=== PATIENT | female | born 1945 | race Two or more races ===

== ENCOUNTER → 2018-09-14 | Outpatient (CLI) | payer OTHER ==
[~2018-09-14] MED LIST: ALBUAER3 IN; HYDR25TA4 PO; LATA0.0015 EACHEYE; LOSA-39 PO; OMEP20TA PO
[2018-09-14 09:34] LABS: Urine Blood Negative /uL (Negative); Urine Specific Gravity 1.008 (1.001-1.035)
[2018-09-14 09:38] LABS: Basophils # (auto) 0 uL; Basophils % (auto) 0.5 % (0.0-2.0); Eosinophils # (auto) 0.1 uL; Eosinophils % (auto) 1.2 % (0.0-7.0); Hematocrit 41.9 % (36.0-46.0); Hemoglobin 13.9 g/dL (12.2-16.2); Lymphocytes # (auto) 1.5 uL; Lymphocytes % (auto) 27.5 % (10.0-50.0); Mean Corpuscular Hemoglobin 29.5 pg (28.0-32.0); Mean Corpuscular Hgb Conc. 33.1 g/dL (32.0-36.0); Mean Corpuscular Volume 89.1 fL (80.0-100.0); Monocytes # (auto) 0.4 uL; Monocytes % (auto) 7.5 % (0.0-12.0); Neutrophils # (auto) 3.4 uL; Neutrophils % (auto) 63.3 % (37.0-80.0); Platelet Count (auto) 224 10^3/uL (140-450); Red Cell Distribution Width 14.2 % (11.8-14.3); White Blood Cell 5.4 10^3/uL (4.4-10.8)
[2018-09-14 09:50] LABS: INR < 0.93 (0.9-1.15); Partial Thromboplastin Time 27.5 sec (23.64-32.05)
[2018-09-14 10:10] LABS: Albumin 3.3 g/dL (3.4-5.0); Calcium 9.8 mg/dL (8.5-10.1); Potassium 4.2 mmol/L (3.5-5.1)
[2018-09-14 10:20] LABS: BUN/Creatinine Ratio 19.5; Bilirubin, Total 0.4 mg/dL (0.2-1.0); Total Protein 7.3 g/dL (6.4-8.2)
== END | disposition home or self-care (01) ==
LOC: LAB 09:05
PROVIDERS: ATTEND Internal Medicine
DX: E78.5 Hyperlipidemia, unspecified (principal)
CPT/HCPCS: 36415; 80053; 80061; 81003; 85025; 85610; 85730

== ENCOUNTER 2018-10-06 06:18 | Inpatient (IN) | payer OTHER ==
[2018-09-29 13:45] LABS: Basophils # (auto) 0 uL; Basophils % (auto) 0.4 % (0.0-2.0); Eosinophils # (auto) 0.1 uL; Eosinophils % (auto) 1.3 % (0.0-7.0); Hematocrit 41.1 % (36.0-46.0); Hemoglobin 13.8 g/dL (12.2-16.2); Lymphocytes # (auto) 1.8 uL; Lymphocytes % (auto) 30.7 % (10.0-50.0); Mean Corpuscular Hgb Conc. 33.6 g/dL (32.0-36.0); Mean Corpuscular Volume 89.2 fL (80.0-100.0); Monocytes # (auto) 0.5 uL; Monocytes % (auto) 8.6 % (0.0-12.0); Neutrophils # (auto) 3.4 uL; Nucleated Red Blood Cells % 0.1 %; Platelet Count (auto) 205 10^3/uL (140-450); Red Cell Distribution Width 13.7 % (11.8-14.3); Urine Blood Negative /uL (Negative); Urine Specific Gravity 1.007 (1.001-1.035); White Blood Cell 5.8 10^3/uL (4.4-10.8)
[2018-09-29 13:53] LABS: Albumin 3.1 g/dL (3.4-5.0); Calcium 9.2 mg/dL (8.5-10.1); Potassium 4.1 mmol/L (3.5-5.1)
[2018-09-29 13:56] LABS: BUN/Creatinine Ratio 16.5; Bilirubin, Total 0.3 mg/dL (0.2-1.0); Total Protein 7.4 g/dL (6.4-8.2)
[2018-09-29 14:18] LABS: INR < 0.93 (0.9-1.15); Partial Thromboplastin Time 26.8 sec (23.64-32.05)
[2018-10-06] VITALS (8 sets, daily range): BP systolic 95–131; BP diastolic 50–72
[~2018-10-06] VITALS: Ht 157.5 cm; Wt 97.8 kg
[~2018-10-06 06:18] MED LIST changes: +CLINDAMYCIN 600MG IV 50 ML IV ONE
[2018-10-06] MEDS ORDERED: TETRACAINE 1% INJ 2 ML VIAL IJ ONE (06:49)
[2018-10-06] MEDS ORDERED: MORPHINE SULF(PF) 0.5MG/ML 10ML VIAL ONE (06:59)
[2018-10-06] MEDS ORDERED: PROPOFOL 10 MG/ML 20 ML IV ONE ×2 (06:59→11:38)
[2018-10-06] MEDS ORDERED: MIDAZOLAM HCL 1MG/1ML-2 ML VIAL ONE (06:59)
[2018-10-06] MEDS ORDERED: fentaNYL CITRATE 100 MCG/2 ML VL ONE (06:59)
[2018-10-06] MEDS ORDERED: ONDANSETRON HCL 4 MG/2 ML VIAL ONE (06:59)
[2018-10-06] MEDS ORDERED: SODIUM CHLORIDE LOCK 10 ML ONE (06:59)
[2018-10-06] MEDS ORDERED: EPINEPHrine HCL 1 MG/1 ML AMP ONE (07:02)
[2018-10-06] MEDS ORDERED: CLINDAMYCIN 600MG IV 50 ML IV ONE (07:10)
[2018-10-06] MEDS ORDERED: diphenhdrAMINE HCL 50 MG/1 ML VL IV PRN (10:45)
[2018-10-06] MEDS ORDERED: METOCLOPRAMIDE HCL 5MG/ml INJ 2ml VIAL IV PRN (10:45)
[2018-10-06] MEDS ORDERED: KETOROLAC TROMETH 30 MG/ML 1ML VIAL IV ONE (10:45)
[2018-10-06] MEDS ORDERED: HYDROmorphone HCL 2 MG/ML VL IV PRN (10:45)
[2018-10-06] MEDS ORDERED: fentaNYL CITRATE 100 MCG/2 ML VL IV PRN (10:45)
[2018-10-06] MEDS ORDERED: NALOXONE HCL 0.4 MG/ML VIAL IV PRN (10:45)
[2018-10-06] MEDS ORDERED: LACTATED RINGER'S 1,000 ML IV SCH (12:31)
[2018-10-06] MEDS ORDERED: ENOXAPARIN SOD 40 MG/0.4 ML SYRINGE SC ONE (12:45)
[2018-10-06] MEDS ORDERED: ONDANSETRON HCL 4 MG/2 ML VIAL IV PRN (12:45)
[2018-10-06] MEDS ORDERED: TEMAZEPAM 15 MG CAP PO PRN (12:45)
[2018-10-06] MEDS ORDERED: ACETAMINOPHEN 325 MG TAB PO PRN (12:45)
--- NOTE | 2018-10-06 13:19 | NUR ---
assessment Per consult D/C planning: JENNIFER, 3 in 1. Patient is still in surgery. Will assess if patient is assigned to a room by 1630. Addendum: 10/06/18 at 1321 by Kathleen Parham Amended: Links added.
--- NOTE | 2018-10-06 14:30 | NUR ---
PATIENT ARRIVED ON UNIT PATIENT IS A&OX4 WITH C/O PAIN TO RIGHT KNEE. R KNEE PRESENTS WITH SOME DRAINAGE PRESENT MARKED AREA AND WILL CONTINUE TO MONITOR. BED IS IN LOW POSITION, BED RAILS UP X2, CALL LIGHT WITHIN REACH. PATIENT EDUCATED SLOT MACHINE DEPARTMENT FLOORPERSON LIGHT USE PRN AND ON POC.
--- NOTE | 2018-10-06 14:50 | NUR ---
RECD ORDER FOR CONTINUOUS PULSE OX. PT CONNECTED TO CONTINUOUS PULSE OX AT BEDSIDE. PT ON 2LNC, SO2 95%, HR 88, RR 18. PT AWAKE, AND ALERT IN NO DISTRESS.
[2018-10-06] MEDS: HYDROmorphone HCL 2 MG/ML VL IV PRN (15:30)
[2018-10-06] MEDS: SODIUM CHLOR 0.9% PF (SALINE LOCK) 10ML VIAL/SYR IV SCH ×2 (17:00→22:05)
[2018-10-06] MEDS: CLINDAMYCIN 600MG IV 50 ML IV SCH ×2 (17:00→22:05)
--- NOTE | 2018-10-06 17:30 | NUR ---
R KNEE ASSESSMENT R KNEE DRESSING PRESENTS SATURATED WITH BRIGHT RED BLOOD AND BED PADS BELOW DRESSING. DR SOHA DAILEY
--- NOTE | 2018-10-06 17:45 | NUR ---
CHARGE NOTIFIED OF BLEEDING AND THAT DR HOYOS DID NOT RETURN THE CALL. PER FUNDRAISING ASSISTANT REINFORCE DRESSING AND HE WILL MAKE CONTACTS WELL
[2018-10-06] MEDS: HYDROcodone-ACET 10/325MG TAB PO PRN ×2 (18:02→22:33)
--- NOTE | 2018-10-06 18:19 | NUR ---
SPOKE WITH MD DR HOYOS RETURNED PAGE
--- NOTE | 2018-10-06 18:30 | NUR ---
DR HOYOS AT BEDSIDE REDRESSING SURGICAL SITE
--- NOTE | 2018-10-06 18:50 | NUR ---
POX CHECK. 2L 99% HR 70 RR 18.
--- NOTE | 2018-10-06 18:57 | NUR ---
WOUND CARE PER DR HOYOS IF PT INCISION BLEEDS MORE DO NOT REINFORCE BUT CHANGE THE ENTIRE DRESSING
[2018-10-06] MEDS: DOCUSATE SOD 100 MG CAP PO SCH (22:04)
[2018-10-07] VITALS (9 sets, daily range): BP systolic 110–147; BP diastolic 62–82
[2018-10-07] MEDS: HYDROmorphone HCL 2 MG/ML VL IV PRN ×2 (01:23→13:40)
[2018-10-07] MEDS: CLINDAMYCIN 600MG IV 50 ML IV SCH ×2 (05:22→14:00)
[2018-10-07] MEDS: SODIUM CHLOR 0.9% PF (SALINE LOCK) 10ML VIAL/SYR IV SCH ×3 (05:23→21:51)
[2018-10-07] MEDS: HYDROcodone-ACET 10/325MG TAB PO PRN ×3 (05:35→22:04)
--- NOTE | 2018-10-07 06:54 | NUR ---
Respiratory note: PT ASSESSED FOR CONT POX. PT NOTED TO BE ON RA SPO2 ALARM GOING OFF DUE TO SPO2 84% PT SLEPT. PT AWOKEN AND SPO2 NOTED TO INCREASE TO 91% ON RA PT PLACED ON 2L N/C SPO2 IMPROVED TO 96%. PT EDUCATED FOR NEED OF OXYGEN PLACEMENT AND UNDERSTANDS. HR 98% RR 18. PT AWARE TO HAVE RT PAGED IF NEEDED.
[2018-10-07 07:28] LABS: Hematocrit 33.4 % (36.0-46.0); Hemoglobin 11.1 g/dL (12.2-16.2)
--- NOTE | 2018-10-07 07:30 | NUR ---
Opening Shift Note Assumed care of patient, awake and alert. No S/S of distress/SOB on 2 LPM via nasal cannula, complains of pain, will medicate as ordered. Instructed on POC and to call for assist PRN, will continue to monitor for changes Q1hr and PRN. Bed in low and locked position, rails up x2, no-slip socks on.
[2018-10-07] MEDS: DOCUSATE SOD 100 MG CAP PO SCH ×2 (10:02→21:51)
[2018-10-07] MEDS: ENOXAPARIN SOD 40 MG/0.4 ML SYRINGE SC SCH (10:03)
--- NOTE | 2018-10-07 10:40 | NUR ---
DR HOYOS AT BEDSIDE NO NEW ORDERS
--- NOTE | 2018-10-07 11:18 | NUR ---
DR GALVAN AT BEDSIDE NEW ORDERS ADDED
--- NOTE | 2018-10-07 11:30 | NUR ---
CALL TO ORTHO DEPARTMENT LEFT MESSAGE FOR [facility] REGARDING CPM SET UP, PATIENT HAS NOT BEEN ON IT ORDERED. AWAITING CALL BACK. NOTIFIED CHARGE NURSE.
--- NOTE | 2018-10-07 11:50 | NUR ---
NOTIFIED HEAD HOLDER OF INABILITY TO OBTAIN A CPM AT THIS TIME, MADE AWARE AND WILL ATTEMPT TO CONTACT ORTHO.
[2018-10-07] MEDS: FAMOTIDINE 20 MG TAB PO SCH ×2 (12:13→21:51)
--- NOTE | 2018-10-07 13:12 | NUR ---
o/c note: ss order for cpm machine. Instructed PALOMO Dinh to fax to [facility] [phone], face sheet, order and cover sheet.
--- NOTE | 2018-10-07 13:36 | NUR ---
0/c note DME auth for CPM machine is [id number] RN to find out if pt has fww and 3:1 chair. If not auth for fww and 3:1 i [id number]. RN to fax to fax [phone] # [phone]
--- NOTE | 2018-10-07 13:40 | NUR ---
PHYSICAL THERAPY AT BEDSIDE CPM MACHINE PLACED, PATIENT ONLY ABLE TO TOLERATE 25 DEGREES AT THIS TIME, PER PT, ALLOW MACHINE TO RUN AND INCREASE DEGREES UP TO 30 IN 30 MINUTES
--- NOTE | 2018-10-07 13:47 | NUR ---
o/c note Spoke to primary RN Elba. Instructed her to fax dme order to [facility]. Elba stated pt already has 3 1 chair
--- NOTE | 2018-10-07 13:54 | NUR ---
o/c note: Zheng from [employer] asking for the following paperwork to be faxed to [employer]. H&p , opertative report, auth #, face sheet,and a prescription for cpm machine. will call primary RN to fax this request
--- NOTE | 2018-10-07 14:20 | NUR ---
CPM UP TO 30 DEGREES PATIENT ABLE TO TOLERATE
--- NOTE | 2018-10-07 14:34 | NUR ---
o/c note Elba curtis RN stated she will try to get Prescription from today, if not today , then she is on tomorrow and will get it then. [facility] notified
--- NOTE | 2018-10-07 15:00 | NUR ---
GUN WELDER INFORMATION FAXED FAXED AUTH NUMBER, ORDER AND FACE SHEET TO [facility] FOR FWW
--- NOTE | 2018-10-07 16:00 | NUR ---
LOW GRADE FEVER 99.4, COOLING MEASURES INITIATED, ICE PACKS APPLIED AND ROOM COOLED.
--- NOTE | 2018-10-07 16:30 | NUR ---
DRESSING CHANGED PATIENT REQUESTING TO COME OFF THE CPM MACHINE, DRESSING TO RIGHT LEG WITH MODERATE SANGUINEOUS DRAINAGE. WOUND WELL APPROXIMATED AND LORRI INTACT. DRESSING APPLIED WITH 4X4 GAUZE AND TAPE, PATIENT TOLERATED IT WELL.
--- NOTE | 2018-10-07 17:30 | NUR ---
Corrales catheter dc'd Order to discontinue corrales catheter. Corrales dc'd with clean technique following deflation of balloon. Patient tolerated well with no complaints of pain. Continue care.
--- NOTE | 2018-10-07 20:00 | NUR ---
Opening Shift Note Assumed care of patient, awake and alert. No S/S of distress/SOB or pain. Instructed on POC and to call for assist PRN, will continue to monitor for changes Q1hr and PRN.Dressing on the right knee dry and intact.
[2018-10-07] MEDS: LATANOPROST 0.005 % OPTH(EYE) SOL 2.5ML EACHEYE SCH (21:51)
[2018-10-08 05:20] VITALS: BP 155/69
[2018-10-08] MEDS: SODIUM CHLOR 0.9% PF (SALINE LOCK) 10ML VIAL/SYR IV SCH ×3 (06:06→23:40)
[2018-10-08 06:31] LABS: Basophils # (auto) 0 uL; Basophils % (auto) 0.2 % (0.0-2.0); Eosinophils # (auto) 0 uL; Eosinophils % (auto) 0.2 % (0.0-7.0); Hematocrit 31.2 % (36.0-46.0); Hemoglobin 10.5 g/dL (12.2-16.2); Lymphocytes # (auto) 1.6 uL; Lymphocytes % (auto) 14.7 % (10.0-50.0); Mean Corpuscular Hgb Conc. 33.8 g/dL (32.0-36.0); Mean Corpuscular Volume 88.8 fL (80.0-100.0); Monocytes # (auto) 0.8 uL; Neutrophils # (auto) 8.1 uL; Neutrophils % (auto) 76.9 % (37.0-80.0); Nucleated Red Blood Cells % 0.1 %; Platelet Count (auto) 169 10^3/uL (140-450); Red Blood Cells 3.51 10^6/uL (4.0-5.20); Red Cell Distribution Width 13.3 % (11.8-14.3); White Blood Cell 10.6 10^3/uL (4.4-10.8)
[2018-10-08 06:57] LABS: Calcium 8.7 mg/dL (8.5-10.1); Potassium 3.9 mmol/L (3.5-5.1)
[2018-10-08 06:58] LABS: BUN/Creatinine Ratio 16.7
--- NOTE | 2018-10-08 07:01 | NUR ---
Report given to Ishmael Arreola, patient is resting no distress.
--- NOTE | 2018-10-08 07:30 | NUR ---
Opening Shift Note Assumed care of patient, awake and alert. No S/S of distress/SOB or pain on 2 LPM via nasal cannula. Instructed on POC and to call for assist PRN, will continue to monitor for changes Q1hr and PRN. Bed in low and locked position, rails up x2, no-slip socks on.
[2018-10-08 09:11] VITALS: BP 159/72
[2018-10-08] MEDS: DOCUSATE SOD 100 MG CAP PO SCH ×2 (10:22→23:40)
[2018-10-08] MEDS: ENOXAPARIN SOD 40 MG/0.4 ML SYRINGE SC SCH (10:22)
[2018-10-08] MEDS: FAMOTIDINE 20 MG TAB PO SCH ×2 (10:22→23:40)
[2018-10-08] MEDS: HYDROcodone-ACET 10/325MG TAB PO PRN ×2 (10:22→23:57)
--- NOTE | 2018-10-08 10:22 | NUR ---
o/c note Virgilio Conway called and asked for update for CPM machine. Informed them we are waiting for prescription from MD and as soon as we get prescription, we will fax it to them. I also gave them ph # to hospital and to speak to primary RN so Virgilio Conway can speak with pt to see if pt wants cpm machine delivered to pts home
[2018-10-08] MEDS ORDERED: LOSARTAN POTASSIUM 50 MG TAB PO ONE (11:30)
--- NOTE | 2018-10-08 12:37 | NUR ---
called [facility] to inquire about fww, had to leave message and await call back
[2018-10-08 13:00] VITALS: BP 158/70
--- NOTE | 2018-10-08 13:12 | NUR ---
o/c note I called GABRIELLA staley [phone] and had to leave message to call me back
[2018-10-08] MEDS: HYDROmorphone HCL 2 MG/ML VL IV PRN (13:30)
--- NOTE | 2018-10-08 13:52 | NUR ---
o/c note spoke to Gely at she will work on order and have fww delivered tomorrow at bedside
--- NOTE | 2018-10-08 15:00 | NUR ---
DR ANGEL AT BEDSIDE NEW BP MEDICATION ADDED, NO OTHER ORDERS ADDED
[2018-10-08 16:47] VITALS: BP 132/95
[2018-10-08 17:15] VITALS: BP 126/102
--- NOTE | 2018-10-08 19:20 | NUR ---
Opening Shift Note Assumed care of patient, eyes close, respirations even and unlabored, appears asleep. Patient awakens to name and touch. No S/S of distress/SOB or pain on 2 liters via nasal cannula. Bed in lowest locked position, side rails up x2, call light within reach. Dressing to right knee clean, dry, and intact. Instructed on POC and to call for assist PRN, will continue to monitor for changes Q1hr and PRN.
[2018-10-08 21:52] VITALS: BP 155/69
--- NOTE | 2018-10-08 22:00 | NUR ---
Low grade temperature Patient's temperature 99.1. Patient denies chills and no s/s of distress at this time. Cooling measures provided. Will continue to monitor.
[2018-10-08] MEDS: LATANOPROST 0.005 % OPTH(EYE) SOL 2.5ML EACHEYE SCH (23:40)
[2018-10-09 05:45] VITALS: BP 147/60
[2018-10-09] MEDS: SODIUM CHLOR 0.9% PF (SALINE LOCK) 10ML VIAL/SYR IV SCH ×2 (06:00→13:54)
[2018-10-09 06:49] LABS: Hematocrit 32.2 % (36.0-46.0); Hemoglobin 10.8 g/dL (12.2-16.2)
--- NOTE | 2018-10-09 07:09 | NUR ---
Closing Note Patient lying in bed, eyes closed, respirations even and unlabored, appears asleep. Patient awakens to name and touch. No s/s of distress. Will endorse care to dayshift RN.
--- NOTE | 2018-10-09 08:00 | NUR ---
Opening Shift Note Assumed care of patient, awake and alert. No S/S of distress/SOB. Some pain reported to right knee. Instructed on POC and to call for assist PRN, will continue to monitor for changes Q1hr and PRN.
[2018-10-09 08:30] VITALS: BP 139/71
[2018-10-09] MEDS: LOSARTAN POTASSIUM 50 MG TAB PO SCH (09:43)
[2018-10-09] MEDS: DOCUSATE SOD 100 MG CAP PO SCH ×2 (09:43→21:56)
[2018-10-09] MEDS: ENOXAPARIN SOD 40 MG/0.4 ML SYRINGE SC SCH (09:43)
[2018-10-09] MEDS: FAMOTIDINE 20 MG TAB PO SCH ×2 (09:43→21:56)
[2018-10-09] MEDS: HYDROmorphone HCL 2 MG/ML VL IV PRN (11:06)
[2018-10-09 12:33] VITALS: BP 132/69
[2018-10-09] MEDS: HYDROcodone-ACET 10/325MG TAB PO PRN ×2 (15:15→21:56)
[2018-10-09 17:18] VITALS: BP 120/76
--- NOTE | 2018-10-09 19:35 | NUR ---
Opening Shift Note Report received from day shift RN. Assumed care of patient. Patient awake and alert x4. No S/S of distress/SOB noted and patient states having right knee pain. Dressing to right knee clean, dry, and intact. Instructed on POC and to call for assist PRN, will continue to monitor for changes Q1hr and PRN.
[2018-10-09] MEDS: LATANOPROST 0.005 % OPTH(EYE) SOL 2.5ML EACHEYE SCH (21:57)
[2018-10-09 22:00] VITALS: BP 124/65
[2018-10-10] MEDS: SODIUM CHLOR 0.9% PF (SALINE LOCK) 10ML VIAL/SYR IV SCH ×4 (00:15→23:28)
[2018-10-10 05:00] VITALS: BP 130/61
[2018-10-10 06:59] LABS: Hematocrit 29.2 % (36.0-46.0); Hemoglobin 9.7 g/dL (12.2-16.2)
[2018-10-10 07:13] LABS: Calcium 8.6 mg/dL (8.5-10.1); Potassium 3.9 mmol/L (3.5-5.1)
[2018-10-10 07:15] LABS: BUN/Creatinine Ratio 22.9
--- NOTE | 2018-10-10 08:00 | NUR ---
Opening Shift Note Assumed care of patient, resting with eyes closed. Wakes to sound and touch. No S/S of distress/SOB. Some pain to right knee. Instructed on POC and to call for assist PRN, will continue to monitor for changes Q1hr and PRN.
[2018-10-10 09:00] VITALS: BP 130/61
--- NOTE | 2018-10-10 09:20 | NUR ---
Managed Care I faxed paper work along with [employer] and order to managed care at this time
[2018-10-10] MEDS: LOSARTAN POTASSIUM 50 MG TAB PO SCH (09:46)
[2018-10-10] MEDS: DOCUSATE SOD 100 MG CAP PO SCH ×2 (09:46→21:42)
[2018-10-10] MEDS: ENOXAPARIN SOD 40 MG/0.4 ML SYRINGE SC SCH (09:46)
[2018-10-10] MEDS: FAMOTIDINE 20 MG TAB PO SCH ×2 (09:46→21:42)
[2018-10-10] MEDS: HYDROcodone-ACET 10/325MG TAB PO PRN ×2 (09:51→21:42)
--- NOTE | 2018-10-10 10:00 | NUR ---
CPM machine [facility] from Ortho stated that the patient is to take the CPM machine home from her room if she is discharged today.
--- NOTE | 2018-10-10 10:01 | NUR ---
Discharge planning per consult received, patient has orders for a CPM machine. Referral was sent to [email or web address] on 10.08.18, placed a follow up call, spoke with Stella, and was advised they have received the order and [facility] will deliver the machine this evening between 5-8pm. Addendum: 10/10/18 at 1004 by WING HUNTLEY SS Amended: Links added. Addendum: 10/10/18 at 1150 by WING HUNTLEY SS Placed a follow up call to Stella at [email or web address] and advised her that the CPM machine needed to be delivered at bedside. She advised that she would let [facility] know to deliver the CPM here to the bedside between 5-8pm today 10.10.18.
--- NOTE | 2018-10-10 10:58 | NUR ---
Nutrition Assessment Notes please see attached link for complete assessment Est. Needs ABW (73 kg): [id number] kcal (20-23 kcal/kgBW), 73-80 gms pro (1.0-1.1 gms/kgBW). Will continue to monitor pertinent labs and reassess nutrient need prn Addendum: 10/10/18 at [address] Amended: Links added.
[2018-10-10] MEDS: HYDROmorphone HCL 2 MG/ML VL IV PRN (12:53)
[2018-10-10 13:00] VITALS: BP 123/58
[2018-10-10 17:00] VITALS: BP 110/52
--- NOTE | 2018-10-10 17:19 | NUR ---
assessment Patient is a 73 year old female who is alert and oriented. Patients cognitive abilities are intact. Prior to admission patient lived home with family and functioned independently. Patient informed me she is able to care for her own ADLs. Per patient she will return home to her prior living arrangements post discharge and her son will transport her home. Patient has been admitted for right knee replacement. Patient has no DME at home. Patient will need home health for PT, fww, and CPM machine on discharge. Selina SHARP CM will be satisfying MD orders for Fww and home health. Patient informed me her cousin Caity will help her on discharge with bathing and cooking. Patient informed me she has good family support. I informed patient she has a right to speak to a foster care social worker regarding all care. Patient does not have a POA and advanced directive. I have offered patient information on POA and advanced directives. I informed the patient the advantages and benefits of having an Advanced Directive. Patient does not want advanced directive at this time. Patient verbalized understanding and agreed to discharge plan home. Addendum: 10/10/18 at 1722 by Kathleen IQBAL Amended: Links added.
--- NOTE | 2018-10-10 19:23 | NUR ---
Opening Shift Note Report received from day shift RN. Assumed care of patient. Patient awake laying in bed and alert x4. No S/S of distress/SOB noted and patient states having right knee pain. Will medicate patient as ordered. Dressing to right knee clean, dry, and intact. Instructed on POC and to call for assist PRN, will continue to monitor for changes Q1hr and PRN.
[2018-10-10] MEDS: LATANOPROST 0.005 % OPTH(EYE) SOL 2.5ML EACHEYE SCH (21:44)
[2018-10-10 22:00] VITALS: BP 130/66
--- NOTE | 2018-10-10 22:15 | NUR ---
Low grade temperature Patient's temperature 99.5. Patient denies chills and no s/s of distress at this time. Cooling measures initiated, ice packs given. Will continue to monitor.
--- NOTE | 2018-10-10 23:15 | NUR ---
Temperature reassessed After cooling measures initiated, patient's temp 99.0, will continue to monitor.
[2018-10-11 06:01] VITALS: BP 146/79
[2018-10-11] MEDS: SODIUM CHLOR 0.9% PF (SALINE LOCK) 10ML VIAL/SYR IV SCH ×2 (06:24→14:00)
--- NOTE | 2018-10-11 08:00 | NUR ---
Opening Shift Note Assumed care of patient, awake and alert. No S/S of distress/SOB, 5/10 right knee pain. Right knee dressing dry and intact with CPM. Instructed on POC and to call for assist PRN, will continue to monitor for changes Q1hr and PRN.
[2018-10-11 09:00] VITALS: BP 153/73
[2018-10-11] MEDS: LOSARTAN POTASSIUM 50 MG TAB PO SCH (09:22)
[2018-10-11] MEDS: HYDROmorphone HCL 2 MG/ML VL IV PRN ×2 (09:22→16:23)
[2018-10-11] MEDS: FAMOTIDINE 20 MG TAB PO SCH (09:23)
[2018-10-11] MEDS: ENOXAPARIN SOD 40 MG/0.4 ML SYRINGE SC SCH (09:23)
[2018-10-11] MEDS: DOCUSATE SOD 100 MG CAP PO SCH (09:23)
--- NOTE | 2018-10-11 09:55 | NUR ---
Walk with PT today. Addendum: 10/11/18 at 1140 by Misty Vicente RN Walked with PT today. Tolerated well.
--- NOTE | 2018-10-11 12:56 | NUR ---
re-assessment Per Selina case resource manager consult Home Pt faxed to [facility] ph:[phone] fx: [phone] per Martine pt has been accepted and service to start 24-48 hours post discharge. Pt agrees to discharge plan home. Addendum: 10/11/18 at 1524 by Kathleen IQBAL Amended: Links added.
[2018-10-11 13:00] VITALS: BP 148/63
[2018-10-11] MEDS ORDERED: LOSARTAN POTASSIUM 50 MG TAB PO ONE (13:00)
[2018-10-11] MEDS: HYDROcodone-ACET 10/325MG TAB PO PRN (13:10)
[2018-10-11 16:35] VITALS: BP 148/63
[2018-10-11 17:00] VITALS: BP 110/40
--- NOTE | 2018-10-11 17:00 | NUR ---
Right knee dressing changed.
--- NOTE | 2018-10-11 18:35 | NUR ---
Discharge instructions given as ordered. Encourage to follow up with PMD Dr. Flo Om on 10/18/18 at 1:00pm and follow up with ortho Dr. Thompson on 10/20/18 at 2:30pm as instructed. Details of the follow up appointments given to the patient. All questions and concerns addressed. Patient verbalized understanding. Medication reconciliation form completed and copy given to patient. IV removed with catheter intact, pressure dressing applied. Patient taken to vehicle via wheelchair with all personal belongings, accompanied by staff and family member. CPM machine and FWW were also taken for home use. No distress noted at time of departure.
== END 2018-10-11 18:35 | disposition home health service (06) | DRG 470 ==
LOC: SUR 06:18 → EAST 13:34
PROVIDERS: ADMIT Orthopaedic Surgery; ATTEND Internal Medicine
PROC: 0MBN0ZZ Excision of Right Knee Bursa and Ligament, Open Approach (ICD-10-PCS; principal; 2018-10-07)
PROC: 0SRC0J9 Replacement of Right Knee Joint with Synthetic Substitute, Cemented, Open Approach (ICD-10-PCS; 2018-10-07)
PROC: 0QSG0ZZ Reposition Right Tibia, Open Approach (ICD-10-PCS; 2018-10-07)
PROC: 0QSD0ZZ Reposition Right Patella, Open Approach (ICD-10-PCS; 2018-10-07)
DX: M17.11 Unilateral primary osteoarthritis, right knee (principal); E87.1 Hypo-osmolality and hyponatremia; E66.01 Morbid (severe) obesity due to excess calories; J44.9 Chronic obstructive pulmonary disease, unspecified; K21.9 Gastro-esophageal reflux disease without esophagitis; I10 Essential (primary) hypertension; H40.9 Unspecified glaucoma; Z79.01 Long term (current) use of anticoagulants; Z79.899 Other long term (current) drug therapy; Z88.0 Allergy status to penicillin; Z68.39 Body mass index [BMI] 39.0-39.9, adult
CPT/HCPCS: 36415; 73562; 80048; 80053; 81003; 85014; 85018; 85025; 85610; 85730; 86850; 86900; 86901; 94762; 97110; 97116; 97163; 97530; G0378; J0171; J2250; J2405; J2704; J3490

== ENCOUNTER → 2018-10-27 | Outpatient (CLI) | payer OTHER ==
[~2018-10-27] MED LIST changes: -CLINDAMYCIN 600MG IV 50 ML IV ONE
== END | disposition home or self-care (01) ==
LOC: XYW 14:05
PROVIDERS: ATTEND Orthopaedic Surgery
DX: M79.89 Other specified soft tissue disorders (principal); Z96.659 Presence of unspecified artificial knee joint
CPT/HCPCS: 93971

== ENCOUNTER → 2019-04-03 | Day surgery (SDC) | payer OTHER ==
[2019-03-29 09:50] LABS: Basophils # (auto) 0 uL; Basophils % (auto) 0.6 % (0.0-2.0); Eosinophils # (auto) 0.1 uL; Eosinophils % (auto) 1.2 % (0.0-7.0); Hematocrit 42.4 % (36.0-46.0); Hemoglobin 13.8 g/dL (12.2-16.2); Lymphocytes # (auto) 1.1 uL; Lymphocytes % (auto) 23.8 % (10.0-50.0); Mean Corpuscular Hemoglobin 27.8 pg (28.0-32.0); Mean Corpuscular Hgb Conc. 32.6 g/dL (32.0-36.0); Mean Corpuscular Volume 85.2 fL (80.0-100.0); Monocytes # (auto) 0.4 uL; Monocytes % (auto) 8.2 % (0.0-12.0); Neutrophils # (auto) 3.2 uL; Neutrophils % (auto) 66.2 % (37.0-80.0); Nucleated Red Blood Cells % 0.1 %; Platelet Count (auto) 226 10^3/uL (140-450); Red Blood Cells 4.97 10^6/uL (4.0-5.20); Red Cell Distribution Width 15.5 % (11.8-14.3); White Blood Cell 4.8 10^3/uL (4.4-10.8)
[2019-03-29 10:07] LABS: Partial Thromboplastin Time 27.8 sec (23.64-32.05)
[~2019-04-03] VITALS: Ht 157.5 cm; Wt 84.8 kg
[~2019-04-03] MED LIST changes: -ALBUAER3 IN; +LIDOCAINE VISCOUS 2% 15ML UD ONE; -LOSA-39 PO; +LOSA-69 PO; -OMEP20TA PO; +PRE5T PO; +SODIUM CHLORIDE LOCK 10 ML ONE; +diphenhdrAMINE HCL 50 MG/1 ML VL ONE
[2019-04-03] MEDS: MIDAZOLAM HCL 5 MG/ML-1ML VIAL ONE ×3 (12:04→12:18)
[2019-04-03] MEDS: fentaNYL CITRATE 100 MCG/2 ML VL ONE ×3 (12:04→12:18)
[2019-04-03 13:21] VITALS: BP 137/70
== END | disposition home or self-care (01) ==
LOC: GI 11:17
PROVIDERS: ATTEND Internal Medicine Gastroenterology
DX: K92.1 Melena (principal); K44.9 Diaphragmatic hernia without obstruction or gangrene; K57.30 Diverticulosis of large intestine without perforation or abscess without bleeding; K64.8 Other hemorrhoids; E66.9 Obesity, unspecified; Z88.0 Allergy status to penicillin; Z90.49 Acquired absence of other specified parts of digestive tract; Z79.899 Other long term (current) drug therapy; Z68.34 Body mass index [BMI] 34.0-34.9, adult; Z96.651 Presence of right artificial knee joint
CPT/HCPCS: 36415; 43235; 45378; 85025; 85610; 85730; J1200; J2250; J3010; 99152; 99153

== ENCOUNTER 2019-06-07 12:37 | Inpatient (IN) | payer OTHER ==
[~2019-06-07] VITALS: Ht 157.5 cm; Wt 87.8 kg
[~2019-06-07 12:37] MED LIST changes: -LATA0.0015 EACHEYE; +LATA0.0019 EACHEYE; -LIDOCAINE VISCOUS 2% 15ML UD ONE; -SODIUM CHLORIDE LOCK 10 ML ONE; -diphenhdrAMINE HCL 50 MG/1 ML VL ONE
[2019-06-07] MEDS ORDERED: NITROGLYCERIN 0.4 MG SL TAB SL ONE (13:00)
[2019-06-07] MEDS ORDERED: cloNIDine HCL 0.1 MG TAB PO ONE (13:00)
[2019-06-07] MEDS ORDERED: ASPirin 81 mg TAB PO ONE (13:00)
[2019-06-07 13:27] LABS: Basophils # (auto) 0 10 ^3/uL (0-0.2); Basophils % (auto) 0.6 % (0.0-2.0); Eosinophils # (auto) 0 10 ^3/uL (0-0.8); Eosinophils % (auto) 0.9 % (0.0-7.0); Hematocrit 44.2 % (36.0-46.0); Hemoglobin 14.5 g/dL (12.2-16.2); Lymphocytes # (auto) 1.2 10 ^3/uL (0.4-5.4); Lymphocytes % (auto) 25.4 % (10.0-50.0); Mean Corpuscular Hemoglobin 27.9 pg (28.0-32.0); Mean Corpuscular Hgb Conc. 32.7 g/dL (32.0-36.0); Mean Corpuscular Volume 85.4 fL (80.0-100.0); Monocytes # (auto) 0.3 10 ^3/uL (0-1.3); Monocytes % (auto) 6.9 % (0.0-12.0); Neutrophils # (auto) 3.2 10 ^3/uL (1.6-8.6); Neutrophils % (auto) 66.2 % (37.0-80.0); Nucleated Red Blood Cells % 0.1 %; Platelet Count (auto) 239 10^3/uL (140-450); Red Blood Cells 5.17 10^6/uL (4.0-5.20); Red Cell Distribution Width 14.5 % (11.8-14.3); White Blood Cell 4.9 10^3/uL (4.4-10.8)
[2019-06-07 13:32] LABS: INR 0.98 (0.9-1.15); Partial Thromboplastin Time 27.3 sec (23.64-32.05)
[2019-06-07 13:41] LABS: Albumin 3.2 g/dL (3.4-5.0); Anion Gap 7 (5-15); BUN/Creatinine Ratio 10.8; Blood Urea Nitrogen 10 mg/dL (7-18); Calcium 8.9 mg/dL (8.5-10.1); Carbon Dioxide 28 mmol/L (21-32); Chloride 103 mmol/L (98-107); GFR African American 76 mL/min; GFR Non-African American 62 mL/min; Glucose 146 mg/dL (74-106); Potassium 3.6 mmol/L (3.5-5.1); Sodium 138 mmol/L (136-145)
[2019-06-07 13:46] LABS: Alanine Aminotransferase 27 U/L (13-56); Alkaline Phosphatase 67 U/L (45-117); Aspartate Aminotransferase 20 U/L (15-37); Bilirubin, Total 0.5 mg/dL (0.2-1.0); Total Protein 7.7 g/dL (6.4-8.2)
[2019-06-07] MEDS ORDERED: MORPHINE SULF INJ 2 MG/ML SYRINGE 1ML IV PRN (14:45)
[2019-06-07] MEDS ORDERED: NITROGLYCERIN 0.4 MG SL TAB SL PRN (14:45)
[2019-06-07] MEDS ORDERED: ACETAMINOPHEN 500 MG TAB PO PRN (15:30)
[2019-06-07] MEDS ORDERED: PROMETHAZINE HCL 25 MG/ML 1ML IV PRN (15:30)
[2019-06-07] MEDS ORDERED: TEMAZEPAM 15 MG CAP PO PRN (15:30)
[2019-06-07] MEDS ORDERED: DEXTROSE (50%) 50ML SYRG IV PRN (15:30)
[2019-06-07] MEDS: traMADol HCL 50 MG TAB PO PRN ×2 (16:05→21:58)
[2019-06-07] MEDS: SODIUM CHLORIDE 0.9% 1,000 ML IV SCH (16:05)
[2019-06-07 16:34] LABS: Urine WBC None Seen /hpf (0 - 5)
[2019-06-07 16:45] LABS: Urine Bacteria NONE SEEN /hpf (None Seen); Urine Blood Negative /uL (Negative); Urine Specific Gravity 1.007 (1.001-1.035)
[2019-06-07 16:52] LABS: CRP High Sensitivity 0.74 mg/dL (< 0.3)
[2019-06-07] MEDS: ACCU-CHEK COMFORT CURVE STRIP VI SCH ×2 (17:00→21:35)
[2019-06-07 17:45] VITALS: BP 138/72
[2019-06-07] MEDS ORDERED: FUROSEMIDE 20 MG/2 ML VIAL IV ONE (17:45)
[2019-06-07 18:02] VITALS: BP 138/72
[2019-06-07 18:12] LABS: Magnesium 2.1 mg/dL (1.6-2.6)
[2019-06-07] MEDS ORDERED: METO25TA93 PO (18:21)
--- NOTE | 2019-06-07 21:35 | NUR ---
ACCU CHECK DONE 11O
[2019-06-07] MEDS: METOPROLOL TARTRATE 25 MG TAB PO SCH (21:58)
[2019-06-07] MEDS: ATORVASTATIN 20 MG TAB PO SCH (21:58)
[2019-06-07 22:00] VITALS: BP 146/77
[2019-06-07] MEDS ORDERED: METOPROLOL TARTRATE 25 MG TAB PO SCH (22:00)
[2019-06-08 05:00] VITALS: BP 133/66
[2019-06-08] MEDS: SODIUM CHLORIDE 0.9% 1,000 ML IV SCH (05:31)
[2019-06-08] MEDS: ACCU-CHEK COMFORT CURVE STRIP VI SCH (05:42)
--- NOTE | 2019-06-08 05:42 | NUR ---
ACCU CHECK DONE 93
[2019-06-08 06:39] LABS: Cholesterol 125 mg/dL (< 200); HDL Cholesterol 52 mg/dL (40-59); LDL Cholesterol 60 mg/dL (< 100); Triglycerides 82 mg/dL (< 150)
--- NOTE | 2019-06-08 07:20 | NUR ---
OPENING NOTES ASSUMED CARE OF PT. ALERT AND ORIENTED. NO S/S OF SOB/DISTRESS NOTED. BED SET TO LOWEST POSITION/LOCKED. BEDSIDE RAILS UP X2. CALL LIGHT WITHIN REACH. INSTRUCTED PT TO CALL FOR ASSISTANCE. UPDATE ON POC. PT VERBALIZED UNDERSTANDING. WILL CONTINUE TO MONITOR Q1HR AND PRN.
[2019-06-08] MEDS ORDERED: FUROSEMIDE 20 MG/2 ML VIAL IV SCH (10:00)
[2019-06-08] MEDS: ENOXAPARIN SOD 40 MG/0.4 ML SYRINGE SC SCH (10:00)
[2019-06-08] MEDS: METOPROLOL TARTRATE 25 MG TAB PO SCH ×2 (10:23→21:37)
[2019-06-08] MEDS: ASPirin 81 mg TAB PO SCH (10:23)
[2019-06-08 13:00] VITALS: BP 129/70
--- NOTE | 2019-06-08 13:03 | NUR ---
STRESS TEST SPOKE TO ASHLEE FIELDS) VIA TELEPHONE. PER ASHLEE PATIENT CAN EAT AND HE WILL TRY TO HAVE TEST DONE TODAY.
[2019-06-08] MEDS ORDERED: ADENOSINE 73 MG in GIVE UN-DILUTED 0 ML IV STA (13:05)
--- NOTE | 2019-06-08 13:14 | NUR ---
OFF UNIT PATIENT OF UNIT VIA WHEELCHAIR FOR STRESS TEST. NO S/S OF SOB/DISTRESS NOTED.
[2019-06-08 17:21] VITALS: BP 153/80
--- NOTE | 2019-06-08 19:15 | NUR ---
Opening Shift Note Assumed care of patient, awake, alert and oriented x4, on 2L of oxygen via NC with even and unlabored respirations, no S/S of distress/SOB or pain. Patient able to ambulate with even and steady gait, able to turn independently in bed, bed in lowest locked position, side rails up x2, and call light within reach. Instructed on POC and to call for assist PRN, will continue to monitor for changes Q1hr and PRN.
[2019-06-08] MEDS: traMADol HCL 50 MG TAB PO PRN (20:08)
[2019-06-08] MEDS: ATORVASTATIN 20 MG TAB PO SCH (21:36)
[2019-06-08 22:00] VITALS: BP 123/79
[2019-06-09 05:00] VITALS: BP 141/70
--- NOTE | 2019-06-09 07:30 | NUR ---
RECEIVED REPORT FROM NIGHT NURSE. PATIENT RESTING IN BED, NO DISTRESS NOTED. WILL CONTINUE TO MONITOR.
[2019-06-09 09:00] VITALS: BP 141/71
[2019-06-09] MEDS: ASPirin 81 mg TAB PO SCH (09:52)
[2019-06-09] MEDS: METOPROLOL TARTRATE 25 MG TAB PO SCH ×2 (09:53→22:34)
[2019-06-09] MEDS: ENOXAPARIN SOD 40 MG/0.4 ML SYRINGE SC SCH (09:56)
[2019-06-09 13:00] VITALS: BP 133/70
[2019-06-09 18:09] VITALS: BP 144/71
[2019-06-09 20:00] VITALS: BP 133/70
[2019-06-09 22:00] VITALS: BP 139/66
[2019-06-09] MEDS: ATORVASTATIN 20 MG TAB PO SCH (22:33)
--- NOTE | 2019-06-10 03:08 | NUR ---
PT RESTING WITH NO DISTRESS. STATED EARLIER THAT SHE WANTS TO GO HOME IN THE AM.
--- NOTE | 2019-06-10 08:04 | NUR ---
OPENING NOTES ASSUMED CARE OF PT. PT LAYING COMFORTABLY IN BED. NO S/S OF SOB OR DISTRESS NOTED. BED SET TO LOWEST/LOCKED POSITION. BEDSIDE RAILS UP X2. CALL LIGHT WITHIN REACH. INSTRUCTED PT TO CALL FOR ASSISTANCE. UPDATED PT ON POC. PT VERBALIZED UNDERSTANDING. WILL CONTINUE TO MONITOR Q1HR AND PRN.
[2019-06-10 09:00] VITALS: BP 131/70
[2019-06-10] MEDS: ENOXAPARIN SOD 40 MG/0.4 ML SYRINGE SC SCH (10:39)
[2019-06-10] MEDS: ASPirin 81 mg TAB PO SCH (10:39)
[2019-06-10] MEDS: METOPROLOL TARTRATE 25 MG TAB PO SCH ×2 (10:41→22:18)
[2019-06-10 13:00] VITALS: BP_SYST 148; BP_SYST 159; BP_DIAS 71; BP_DIAS 73
[2019-06-10 17:00] VITALS: BP 144/71
--- NOTE | 2019-06-10 19:35 | NUR ---
Opening Shift Note Assumed care of patient, awake and alert. No S/S of distress/SOB or pain. Bed in lowest locked position, side rails up x2, call light within reach. Instructed on POC and to call for assist PRN, will continue to monitor for changes Q1hr and PRN.
[2019-06-10 22:00] VITALS: BP 146/70
[2019-06-10] MEDS: ATORVASTATIN 20 MG TAB PO SCH (22:18)
[2019-06-10] MEDS: traMADol HCL 50 MG TAB PO PRN (22:29)
[2019-06-11] VITALS (8 sets, daily range): BP systolic 130–154; BP diastolic 62–80
--- NOTE | 2019-06-11 | NUR ---
Patient NPO for left heart cath at this time. Checklist completed and placed in hard chart, patient stated earlier in shift that she has questions and would like to talk to Dr. High before signing consents. Will continue care.
--- NOTE | 2019-06-11 06:35 | NUR ---
Closing Note Patient lying in bed, eyes closed, respirations even and unlabored, appears asleep. No s/s of distress. Care endorsed to dayshift RN.
--- NOTE | 2019-06-11 07:15 | NUR ---
Opening Shift Note Report received and assumed care of patient, resting in bed,awake,alert oriented no distress no discomfort. Instructed on POC and Nursing routines,Instructed to keep NPO for Heart cath procedure call light within reach, patient instructed to to call for assistance,will continue to monitor for changes Q1hr and PRN.Patient verbalized understanding.
--- NOTE | 2019-06-11 08:15 | NUR ---
To laborer orchard via bed for Left heart cath,awake alert ,oriented no distress,report given to Dian CULVER
[2019-06-11] MEDS: ENOXAPARIN SOD 40 MG/0.4 ML SYRINGE SC SCH (10:00)
[2019-06-11] MEDS: ASPirin 81 mg TAB PO SCH (11:30)
[2019-06-11] MEDS: METOPROLOL TARTRATE 25 MG TAB PO SCH ×2 (11:31→22:08)
[2019-06-11] MEDS: PANTOPRAZOLE 40 MG TAB PO SCH (11:31)
[2019-06-11] MEDS ORDERED: IOHEXOL 350 MG/ML 100ML IJ ONE (12:05)
[2019-06-11] MEDS ORDERED: LIDOCAINE 2%HCL (LOCAL ANESTH.) INJ 20ML MDV ONE (12:05)
[2019-06-11] MEDS ORDERED: ANGIOMAX 250 MG VIAL IV ONE (12:29)
[2019-06-11] MEDS ORDERED: MIDAZOLAM HCL 1MG/1ML-2 ML VIAL ONE (12:30)
[2019-06-11] MEDS ORDERED: SODIUM CHL 0.9% 0 ML ONE (12:30)
[2019-06-11] MEDS ORDERED: fentaNYL CITRATE 100 MCG/2 ML VL ONE (12:30)
--- NOTE | 2019-06-11 13:45 | NUR ---
RECEIVED RE[PORT FROM ELYSIA CULVER FUNERAL SERVICE PRACTITIONER/EMBALMER
--- NOTE | 2019-06-11 14:00 | NUR ---
RECEIVED FROM COMMERCIAL OCEAN CLAMMER VIA BED ACCOMPANIED BY 2 COMMERCIAL OCEAN CLAMMER RN'S,AWAKE,ALERT,ORIENTED NO DISTRESS, NO C/O CHEST PAIN.RIGHT GROIN BENIGN,NO BLEEDING NO HEMATOMA NO C/O SITE PAIN DRESSING INTACT.PEDAL PULSES NOTED,SKIN WARM TO TOUCH,VITAL SIGNS TAKEN PER PROTOCOL.BP 130/62,TEMP 97.8 HR 50,O2 SAT ON 2 LITERS NASAL CANNULA 96%,PATIEN TREFUSED TO EAT AT THIS TIME,STATED WILL EAT WHEN ABLE TO UP HEAD OF BED.
--- NOTE | 2019-06-11 16:34 | NUR ---
INFORMED DR. SORENSON RE HEART CATH RESULT, STATED WILL DISCHARGE IN A.M.
--- NOTE | 2019-06-11 17:30 | NUR ---
OOB AMBULATED TO REST ROOM, TOLERATED ACTIVITY,RIGHT GROIN BENIGN
--- NOTE | 2019-06-11 19:02 | NUR ---
STATUS UNCHANGED REPORT GIVEN TO INCOMING NOC SHIFT RN FOR CONTINUATION OF CARE.
--- NOTE | 2019-06-11 19:32 | NUR ---
Opening Shift Note Received report and assumed care of patient. Patient is awake and alert. No signs or symptoms of distress noted. Instructed patient on plan of care and to call for assistance as needed. Right groin dressing clean, dry and intact. Will continue to monitor.
[2019-06-11] MEDS: ATORVASTATIN 20 MG TAB PO SCH (22:08)
[2019-06-11] MEDS: traMADol HCL 50 MG TAB PO PRN (22:08)
--- NOTE | 2019-06-11 22:08 | NUR ---
Pain Medication Administration Patient complaining of knee pain /. Administered pain medication per MD order. Will reassess and continue to monitor.
--- NOTE | 2019-06-11 23:07 | NUR ---
Pain Medication Reassessment Patient pain level reassessed to 4/10. Patient states pain is tolerable and she will "try to sleep". No signs or symptoms of distress noted. Will continue to monitor.
[2019-06-12 05:20] VITALS: BP 140/61
--- NOTE | 2019-06-12 07:30 | NUR ---
Opening Shift Note Report received and assumed care of patient, resting in bed,awake,alert oriented no distress no discomfort. Instructed on POC and Nursing routines, call light within reach, bed in lowest position, patient instructed to call for assistance,will continue to monitor for changes Q1hr and PRN.Patient verbalized understanding
[2019-06-12 08:55] VITALS: BP 150/62
[2019-06-12] MEDS: PANTOPRAZOLE 40 MG TAB PO SCH (09:53)
[2019-06-12] MEDS: METOPROLOL TARTRATE 25 MG TAB PO SCH (09:54)
[2019-06-12] MEDS: ENOXAPARIN SOD 40 MG/0.4 ML SYRINGE SC SCH (09:54)
[2019-06-12] MEDS: ASPirin 81 mg TAB PO SCH (09:54)
--- NOTE | 2019-06-12 12:00 | NUR ---
MD VISIT HERE TO SEE EXAMINED PATIENT,EXPLAIN PLAN OF CARE AND DISCHARGE PLANNING TODAY.
[2019-06-12 12:48] VITALS: BP 156/78
[2019-06-12 14:03] VITALS: BP 148/73
--- NOTE | 2019-06-12 14:42 | NUR ---
assessment Patient is a 74 year old female who is alert and oriented. Patients cognitive abilities are intact. Prior to admission patient lived home with family and functioned independently. Patient informed me she is able to care for her own ADLs. Per patient she will return home to her prior living arrangements post discharge and family will transport her home. Patient informed me she has a fww for home use. Patients PCP is Dr Osmany Rossi. Patient has no safety issues regarding returning home on discharge. Patient has no post discharge needs identified. I informed patient she has a right to speak to a secondary social studies teacher regarding all care. I informed patient she has a right to participate in any and all discharge planning. Patient does not have a POA and advanced directive. I have offered patient information on POA and advanced directives. I informed the patient the advantages and benefits of having an Advanced Directive. Patient verbalized understanding and agreed to discharge plan. Addendum: 06/12/19 at 1443 by Kathleen IQBAL Amended: Links added.
--- NOTE | 2019-06-12 15:00 | NUR ---
Discharge instructions given as ordered. Encourage to follow up with PMD as instructed. All questions and concerns addressed. Patient verbalized understanding. Medication reconciliation form completed and copy given to patient. IV removed with catheter intact, pressure dressing applied.Telemetry unit returned to ICU. Patient taken to vehicle via wheelchair with all personal belongings, accompanied by staff and family member. No distress noted at time of departure.
== END 2019-06-12 15:00 | disposition home or self-care (01) | DRG 287 ==
LOC: ER 12:37 → TELE 12:38 → TELE-WESTW 17:08
PROVIDERS: ADMIT Internal Medicine; ATTEND Internal Medicine
PROC: 4A023N7 Measurement of Cardiac Sampling and Pressure, Left Heart, Percutaneous Approach (ICD-10-PCS; 2019-06-07)
PROC: B2111ZZ Fluoroscopy of Multiple Coronary Arteries using Low Osmolar Contrast (ICD-10-PCS; principal; 2019-06-11)
PROC: B2151ZZ Fluoroscopy of Left Heart using Low Osmolar Contrast (ICD-10-PCS; 2019-06-11)
PROC: 4A02XM4 Measurement of Cardiac Total Activity, External Approach (ICD-10-PCS; 2019-06-11)
DX: R07.9 Chest pain, unspecified (principal); I50.32 Chronic diastolic (congestive) heart failure; E66.9 Obesity, unspecified; K21.9 Gastro-esophageal reflux disease without esophagitis; Z96.651 Presence of right artificial knee joint; E11.65 Type 2 diabetes mellitus with hyperglycemia; J45.909 Unspecified asthma, uncomplicated; I11.0 Hypertensive heart disease with heart failure; Z88.0 Allergy status to penicillin; Z79.899 Other long term (current) drug therapy; Z90.49 Acquired absence of other specified parts of digestive tract; Z90.89 Acquired absence of other organs; Z83.3 Family history of diabetes mellitus; Z82.49 Family history of ischemic heart disease and other diseases of the circulatory system; Z68.35 Body mass index [BMI] 35.0-35.9, adult
CPT/HCPCS: 36415; 71045; 78452; 80053; 80061; 81001; 82550; 82962; 83036; 83735; 83880; 84484; 85025; 85379; 85610; 85652; 85730; 86141; 93005; 93017; 93306; 99152; 99153; G0378; J0153; J2250